=== PATIENT | male | born 1970 | race Caucasian/White ===

== ENCOUNTER 2024-06-01 15:08 | Outpatient (CLI) | payer MEDICAID, OTHER ==
[~2024-06-01] VITALS: Ht 175.3 cm; Wt 78.9 kg
[2024-06-01 15:34] VITALS: PULSE 65; RESP 14; O2SAT 98
[2024-06-01] MEDS: albuterol 2.5 MG/3 ML nebule NEB ONE (15:46)
[2024-06-01 15:49] VITALS: PULSE 66; RESP 15
== END 2024-06-01 23:59 | disposition home or self-care (01) ==
LOC: RT 15:08
PROVIDERS: ATTEND Registered Nurse
DX: J98.11 Atelectasis (principal); R06.09 Other forms of dyspnea; Z87.891 Personal history of nicotine dependence
CPT/HCPCS: 94060; 94760